=== PATIENT | female | born 1960 | race Caucasian/White ===

== ENCOUNTER 2023-10-21 13:53 | Outpatient (REF) | payer BC, SELFPAY | END 2023-10-21 13:54 | disposition home or self-care (01) | LOC: LBN 13:53 | PROVIDERS: Visit Provider Physician Assistant | DX: L98.9 Disorder of the skin and subcutaneous tissue, unspecified (principal); L03.019 Cellulitis of unspecified finger | CPT/HCPCS: 87077; 87070; 87186; 87205 ==